=== PATIENT | female | born 1945 | race Caucasian/White ===

== ENCOUNTER 2019-08-07 18:15 | Emergency (ER) | payer OTHER, MEDICARE, BC ==
[~2019-08-07] VITALS: Ht 162.6 cm; Wt 53.9 kg
[~2019-08-07 18:15] MED LIST: ASPIR 8181 MG PO; LEXAPRO 10 MG T10 MG PO; SYNTHROID50 MCG PO; ZOFRAN4 MG PO
[2019-08-07] MEDS ORDERED: LIDODERM1 EACH TRANSDERM (20:12)
[2019-08-07] MEDS ORDERED: TYLENOL WITH CO1 TA1 PO (20:12)
[2019-08-07 20:37] VITALS: BP 145/85
== END 2019-08-07 20:39 | disposition home or self-care (01) ==
LOC: M.ERS 18:15
DX: S16.1XXA Strain of muscle, fascia and tendon at neck level, initial encounter (principal); R51 Headache; G89.29 Other chronic pain; M54.9 Dorsalgia, unspecified; M81.0 Age-related osteoporosis without current pathological fracture; Z90.49 Acquired absence of other specified parts of digestive tract; Z90.89 Acquired absence of other organs; Z88.2 Allergy status to sulfonamides; V49.49XA Driver injured in collision with other motor vehicles in traffic accident, initial encounter; Y92.89 Other specified places as the place of occurrence of the external cause; Y93.89 Activity, other specified; Y99.8 Other external cause status

== ENCOUNTER 2021-08-09 11:17 | Emergency (ER) | payer MEDICARE, BC ==
[~2021-08-09] VITALS: Ht 160 cm; Wt 48.8 kg
[~2021-08-09 11:17] MED LIST changes: +LIDODERM1 EACH TRANSDERM; +TYLENOL WITH CO1 TA1 PO
[2021-08-09 12:18] LABS: ABSOLUTE LYMPHOCYTES 1.7 thou/uL (0.8-5.3); ABSOLUTE MONOCYTES 1.1 thou/uL (0.0-1.2); ABSOLUTE NEUTROPHILS 7.9 thou/uL (1.6-8.1); BASOPHILS 0.2 %; CALCIUM 8.6 mg/dL (8.5-10.1); CREATININE 0.8 mg/dL (0.6-1.3); EOSINOPHILS 0.3 %; HEMATOCRIT 37.1 % (37.0-47.0); HEMOGLOBIN 12.5 gm/dL (12.0-15.0); LYMPHOCYTES 15.5 %; MCHC 33.6 g/dL (28.0-37.0); MCV 95.3 fL (80.0-100.0); MONOCYTES 10.1 %; MPV 8.6 fl. (7.2-11.1); NUCLEATED RBCS 0 /100WBC; PLATELET COUNT* 125 thou/uL (150-400); POLYS 73.9 %; POTASSIUM 3.6 mmol/L (3.5-5.1); RBC 3.89 mil/uL (4.20-5.00); RDW-CV 13.2 % (10.5-14.5); WBC 10.7 thou/uL (4.0-11.0)
[2021-08-09 12:22] LABS: ALBUMIN 3.5 g/dL (3.4-5.0); TOTAL PROTEIN 6.9 g/dL (6.4-8.2)
[2021-08-09 12:53] LABS: PLATELET ESTIMATE ADEQUATE
[2021-08-09 13:17] LABS: URINE BILIRUBIN NEGATIVE (Negative); URINE BLOOD TRACE (Negative); URINE CLARITY CLEAR; URINE COLOR YELLOW; URINE GLUCOSE-RANDOM NEGATIVE (Negative); URINE KETONES 1+ (Negative); URINE LEUKOCYTES-REFLEX NEGATIVE (Negative); URINE NITRITE-REFLEX NEGATIVE (Negative); URINE PROTEIN NEGATIVE (Negative); URINE SPECIFIC GRAVITY 1.015 (1.005-1.030); URINE UROBILINOGEN 0.2 E.U./dl (0.2-1.0)
[2021-08-09 13:24] LABS: AMP/METHAMP Negative (Negative); BARBITURATES Negative (Negative); BENZODIAZEPINES Negative (Negative); COCAINE Negative (Negative); METHADONE Negative (Negative); OPIATES Negative (Negative); PCP Negative (Negative); THC Negative (Negative)
[2021-08-09 14:20] VITALS: BP 158/64
--- NOTE | 2021-08-10 15:58 | EKG ---
[place] [address] ELECTROCARDIOGRAM REPORT Name: JULEE LÓPEZ Room: [facility]#: [id number] Admission: 08/09/21 Attend Phys: Discharge: 08/09/21 Date of : 49 Date of Service: 08/09/21 1126 Report #: [id number] THIS REPORT FOR: //name// [facility] ED Test Date: 2021-08-09 Test Time: 11:26:46 Pat Name: JULEE LÓPEZ Department: Room: Gender: Sheeter Helper: : 1945 Requested By: Brant [place] Order Number: [id number] MD: Raulito Puga Measurements Intervals Mikana Rate: 92 P: 86 UT: 217 QRS: -45 QRSD: 125 T: 87 QT: 395 QTc: 489 Interpretive Statements Sinus rhythm Prolonged UT interval Left bundle branch block Compared to ECG 02/06/2016 04:57:26 First degree AV block now present Sinus tachycardia no longer present Electronically Signed On 08-10-2021 15:57:59 CRIMP SETTER by Raulito Puga [email or web address] <ELECTRONICALLY SIGNED> By: Raulito Puga MD, FAC 08/10/21 1557 1126 1126 Raulito Puga MD, [facility] /EPI
== END 2021-08-09 14:20 | disposition home or self-care (01) ==
LOC: M.ERS 11:17
PROVIDERS: Physician Assistant
DX: R55 Syncope and collapse (principal); Z90.89 Acquired absence of other organs; Z90.49 Acquired absence of other specified parts of digestive tract; Z79.899 Other long term (current) drug therapy; Z88.2 Allergy status to sulfonamides